=== PATIENT | female | born 1970 | race Asian ===

== ENCOUNTER 2021-10-27 12:20 | Emergency (ER) | payer OTHER ==
[~2021-10-27] VITALS: Ht 175.3 cm; Wt 122.5 kg
[2021-10-27 12:26] VITALS: TEMP 97.1
[2021-10-27 13:45] VITALS: BP 148/75
== END 2021-10-27 13:45 | disposition still patient (30) ==
LOC: ED 12:20
DX: G44.209 Tension-type headache, unspecified, not intractable (principal); M54.2 Cervicalgia
CPT/HCPCS: 93005; 96372; 99283; J1885; J2405

== ENCOUNTER 2021-10-27 17:59 | Emergency (ER) | payer OTHER ==
[~2021-10-27] VITALS: Ht 175.3 cm; Wt 122.5 kg
[2021-10-27 19:41] VITALS: BP 159/90; TEMP 98.8
== END 2021-10-27 19:42 | disposition home or self-care (01) ==
LOC: ED 17:59
DX: G44.209 Tension-type headache, unspecified, not intractable (principal); S16.1XXA Strain of muscle, fascia and tendon at neck level, initial encounter; X58.XXXA Exposure to other specified factors, initial encounter; Y92.89 Other specified places as the place of occurrence of the external cause
CPT/HCPCS: 96372; 99283; J1885; J2360

== ENCOUNTER 2022-05-13 16:15 | Outpatient (CLI) | payer BC | END 2022-05-13 18:55 | disposition home or self-care (01) | LOC: RAD 16:15 | PROVIDERS: ATTEND Nurse Practitioner Family | DX: M25.512 Pain in left shoulder (principal); M79.644 Pain in right finger(s) ==

== ENCOUNTER 2022-08-26 17:21 | Outpatient (CLI) | payer BC | END 2022-08-26 19:02 | disposition home or self-care (01) | LOC: RAD 17:21 | PROVIDERS: ATTEND Nurse Practitioner Family | DX: M25.561 Pain in right knee (principal) ==